=== PATIENT | male | born 1945 | race Caucasian/White ===

== ENCOUNTER → 2018-10-05 | Outpatient (CLI) | payer MEDICARE ==
[~2018-10-05] MED LIST: GADOBUTROL 10 MMOL/10 ML PFS ONE
== END | disposition home or self-care (01) ==
LOC: RAD 11:34
PROVIDERS: ATTEND Internal Medicine Hematology & Oncology
DX: C78.2 Secondary malignant neoplasm of pleura (principal); C34.90 Malignant neoplasm of unspecified part of unspecified bronchus or lung; J90 Pleural effusion, not elsewhere classified; R91.1 Solitary pulmonary nodule; G93.6 Cerebral edema
CPT/HCPCS: 70553; 78815; A9552; A9585

== ENCOUNTER 2018-10-19 07:28 | Outpatient (CLI) | payer MEDICARE | END 2018-10-19 23:59 | disposition home or self-care (01) | LOC: ROC 07:28 | PROVIDERS: ATTEND Radiology Radiation Oncology | DX: Z02.9 Encounter for administrative examinations, unspecified (principal) ==

== ENCOUNTER 2018-10-23 07:16 | Outpatient (CLI) | payer MEDICARE | END 2018-10-23 23:59 | disposition home or self-care (01) | LOC: ROC 07:16 | PROVIDERS: ATTEND Radiology Radiation Oncology | DX: C34.12 Malignant neoplasm of upper lobe, left bronchus or lung (principal); I48.91 Unspecified atrial fibrillation; I25.10 Atherosclerotic heart disease of native coronary artery without angina pectoris; E78.5 Hyperlipidemia, unspecified | CPT/HCPCS: 99214; G0463 ==

== ENCOUNTER → 2018-11-08 | Outpatient (CLI) | payer MEDICARE | END | disposition home or self-care (01) | LOC: CFH 11:14 | PROVIDERS: ATTEND Radiology Radiation Oncology | DX: C71.9 Malignant neoplasm of brain, unspecified (principal); I10 Essential (primary) hypertension; C34.12 Malignant neoplasm of upper lobe, left bronchus or lung | CPT/HCPCS: 70553; A9585 ==

== ENCOUNTER 2019-01-03 07:50 | Outpatient (CLI) | payer MEDICARE ==
[~2019-01-03 07:50] MED LIST changes: -GADOBUTROL 10 MMOL/10 ML PFS ONE
== END 2019-01-03 23:59 | disposition home or self-care (01) ==
LOC: ROC 07:50
PROVIDERS: ATTEND Radiology Radiation Oncology
DX: Z02.9 Encounter for administrative examinations, unspecified (principal)

== ENCOUNTER → 2019-01-03 | Outpatient (CLI) | payer MEDICARE ==
[~2019-01-03] MED LIST changes: +HYDR-3307 PO; +PRED20TA PO; +SIMV20TA3 PO; +WARF-36 PO
== END | disposition home or self-care (01) ==
LOC: RAD 08:14
PROVIDERS: ATTEND Radiology Radiation Oncology
DX: C79.31 Secondary malignant neoplasm of brain (principal); C34.90 Malignant neoplasm of unspecified part of unspecified bronchus or lung; G31.9 Degenerative disease of nervous system, unspecified
CPT/HCPCS: 70553; A9585

== ENCOUNTER 2019-06-26 09:30 | Outpatient (CLI) | payer MEDICARE ==
[~2019-06-26 09:30] MED LIST changes: -HYDR-3307 PO; +HYDR-36 PO
[2019-06-26] MEDS ORDERED: GADOTERATE 10 MMOL/20 ML SYR ONE (10:23)
== END 2019-06-26 23:59 | disposition home or self-care (01) ==
LOC: CFH 09:30
PROVIDERS: ATTEND Internal Medicine Hematology & Oncology
DX: C34.12 Malignant neoplasm of upper lobe, left bronchus or lung (principal); R91.8 Other nonspecific abnormal finding of lung field
CPT/HCPCS: 70553; 78815; A9552; A9575